=== PATIENT | female | born 2005 | race Caucasian/White ===

== ENCOUNTER 2025-01-19 16:45 | Emergency (ER) | payer SELFPAY ==
[~2025-01-19] VITALS: Ht 157.5 cm; Wt 59.0 kg
[2025-01-19 17:24] VITALS: PULSE 100; RESP 18; TEMP 98.1
[2025-01-19 18:49] VITALS: BP 115/69; PULSE 73; RESP 16; O2SAT 100
== END 2025-01-19 18:51 | disposition home or self-care (01) ==
LOC: ER 17:35
DX: S63.695A Other sprain of left ring finger, initial encounter (principal); X58.XXXA Exposure to other specified factors, initial encounter; Y92.89 Other specified places as the place of occurrence of the external cause; R00.0 Tachycardia, unspecified
CPT/HCPCS: 93005; 99282